=== PATIENT | male | born 1945 | race Hispanic/Latino ===

== ENCOUNTER 2017-10-05 04:02 | Emergency (ER) | payer OTHER ==
[~2017-10-05] VITALS: Ht 188 cm; Wt 119.3 kg
--- NOTE | 2017-10-05 04:30 | ED GI/GU/ABDOMINAL COMPLAINT ---
See Addendum History of Present Illness General Chief Complaint: Abdominal Pain/Flank Pain Stated Complaint: "LOW ABD PAIN, DIZZY" PER PT Source: patient, family Exam Limitations: no limitations Vital Signs & Intake/Output Vital Signs & Intake/Output Vital Signs Date Time Temp Pulse Resp B/P B/P Pulse O2 O2 Flow FiO2 Mean Ox Delivery Rate 10/05 0536 98.3 69 20 119/61 96 Room Air 10/05 0500 99.7 10/05 0500 99 Room Air 10/05 0444 99.7 81 20 121/75 96 Room Air Triage Nurses Notes Reviewed? yes HPI: Patient presents with suprapubic pain that started yesterday afternoon and radiates up into his mid abdomen. The pain is constant. No aggravating or mitigating factors. The pain started during sexual relations with his . He rates the pain as severe. The pain radiates as noted above. The pain is cramping and colicky in nature. There is no diarrhea. There is no dysuria or hematuria. There is no nausea or vomiting. (Sharifa PAL,Keven Jain) Allergies Coded Allergies: No Known Allergies (10/05/17) Reconcile Medications Amlodipine Besylate 2.5 MG TABLET 1 TAB PO DAILY HEART (Reported) Amoxicillin/Potassium Clav (Augmentin 875-125 Tablet) 875 MG-125 MG TABLET 1 TAB PO BID DIVERTICULITIS Carvedilol 6.25 MG TABLET 1 TAB PO BID HEART (Reported) Lisinopril 20 MG TABLET 1 TAB PO DAILY HEART (Reported) (Wanda PAL,Miguel Gongora) Past History Travel History Traveled to [place] past 21 day No Medical History Any Pertinent Medical History? see below for history Cardiovascular: CAD, hypertension Surgical History Surgical History: non-contributory Psychosocial History Tobacco Use: Never used ETOH Use: denies use Illicit Drug Use: denies illicit drug use Family History Hx Contributory? No (Sharifa PAL,Keven Jain) Review of Systems Review of Systems Constitutional: Reports: no symptoms. EENTM: Reports: no symptoms. Respiratory: Reports: no symptoms. Cardiovascular: Reports: no symptoms. GI: Reports: see HPI, abdominal pain. Genitourinary: Reports: see HPI. Musculoskeletal: Reports: no symptoms. Skin: Reports: no symptoms. Neurological/Psychological: Reports: no symptoms. Hematologic/Endocrine: Reports: no symptoms. Immunologic/Allergic: Reports: no symptoms. All Other Systems: Reviewed and Negative (Sharifa PAL,Keven Jain) Physical Exam Physical Exam General Appearance: well developed/nourished, alert, awake, anxious, moderate distress Head: atraumatic, normal appearance Eyes: Bilateral: PERRL, EOMI. Ears, Nose, Throat, Mouth: hearing grossly normal, moist mucous membrane Neck: normal inspection, supple, full range of motion Respiratory: normal breath sounds, chest non-tender, no respiratory distress, lungs clear Cardiovascular: regular rate/rhythm, normal peripheral pulses Gastrointestinal: normal bowel sounds, soft, non-tender, no organomegaly Rectal: prostate warm and tender Male Genitals: right testicle high riding and tender Back: normal inspection, normal range of motion, NO CVA TENDERNESS Extremities: normal range of motion Neurologic/Psych: no motor/sensory deficits, awake, alert, oriented x 3, normal gait, normal mood/affect Skin: intact, normal color, warm/dry Core Measures ACS in differential dx? No Sepsis Present: No Sepsis Focused Exam Completed? No (Sharifa PAL,Keven Jain) Progress Differential Diagnosis: orchitis, pancreatitis, prostatitis, SBO, testicular torsion, ureterolithiasis, urinary retention, urethritis, UTI/pyelo Plan of Care: Orders Procedure Date/time Status PROSTATIC SPECIFIC ANTIGEN 10/06 451 Complete Add-on Test (ER Only) 10/05 0448 Active CULTURE,URINE 10/05 428 Active URINALYSIS 10/05 428 Complete LIPASE 10/05 428 Complete COMPREHENSIVE METABOLIC PANEL 10/05 428 Complete CBC WITHOUT DIFFERENTIAL 10/05 428 Complete AMYLASE 10/05 428 Complete Current Medications Sig/Chandra Start time Last Medication Dose Stop Time Status Admin Sodium Chloride 1,000 ML BOLUS ONE 10/05 0645 AC 10/05 (Normal Saline 0.9%) 10/05 0744 0639 Laboratory Tests 10/05/17 0701: Urine Color YEL, Urine Clarity CLEAR, Urine pH 6.0, Ur Specific [place] <= 1.005 , Urine Protein NEG, Urine Ketones NEG, Urine Nitrite NEG, Urine Bilirubin NEG, Urine Urobilinogen 0.2, Ur Leukocyte Esterase NEG, Ur Microscopic EXAM NOT REQUIRED, Urine Hemoglobin NEG, Urine Glucose NEG 10/05/17 0452: Anion Gap 14, Estimated GFR > 60, BUN/Creatinine Ratio 24.3, Glucose 121 H, Calcium 9.2, Total Bilirubin 0.9, AST 16 L, ALT 23, Alkaline Phosphatase 58, Total Protein 7.5, Albumin 4.3, Globulin 3.2, Albumin/Globulin Ratio 1.3, Amylase 53, Lipase 47, Total PSA 2.98, CBC w Diff NO MAN DIFF REQ, RBC 5.59, MCV 84.4, MCH 27.4, MCHC 32.4 L, RDW 15.1 H, MPV 8.5, Gran % 72.9, Lymphocytes % 17.7 L, Monocytes % 8.5, Eosinophils % 0.8, Basophils % 0.1, Absolute Granulocytes 7.2 H, Absolute Lymphocytes 1.7, Absolute Monocytes 0.8 H, Absolute Eosinophils 0.1, Absolute Basophils 0 Microbiology 10/05 07 URINE ROUT: Urine Culture - RECD Diagnostic Imaging: Viewed by Me: CT Scan, Ultrasound. Discussed w/RAD: CT Scan, Ultrasound. Radiology Impression: PATIENT: JAMES HOWARD PRESENT AGE: 71 PATIENT ACCOUNT NO: [id number] : 46 LOCATION: [facility] ORDERING PHYSICIAN: Keven Skaggs MD SERVICE DATE: 10/05/17 EXAM TYPE: US - US-TESTICULAR EXAMINATION: US SCROTUM CLINICAL INFORMATION: Right testicular pain, high riding COMPARISON: 10/03/2015 TECHNIQUE: A sonogram of the scrotum was performed assessing rivero-scale appearance and color Doppler flow. Spectral analysis and Doppler interrogation was performed. FINDINGS: RIGHT: Right testicle measures 3.8 x 1.3 x 2.5 cm, volume 8.8 mL. Parenchymal echotexture is normal. No focal testicular parenchymal lesions are visualized. Normal symmetric intratesticular flow is visualized. Right epididymal head is normal in size. There is a 1.2 cm epididymal head cyst. There is no hydrocele. A varicocele is noted. LEFT: Left testicle measures 4.4 x 2.2 x 3.1 cm, volume 21.3 mL. Parenchymal echotexture is normal. No focal testicular parenchymal lesions are visualized. Normal symmetric intratesticular flow is visualized. Left epididymal head is normal in size. Small hydrocele with internal debris. No varicocele is seen. IMPRESSION: 1. Small right varicocele. Right epididymal head cyst again noted. 2. No evidence of torsion. Stable asymmetry of the testicular sizes. DICTATED BY: Haresh Swenson MD DATE/TIME DICTATED:10/05/17543 DEVELOPMENTAL TRAINING COUNSELOR:NORA DATE/TIME TRANSCRIBED:10/05/17543 CONFIDENTIAL, DO NOT COPY WITHOUT APPROPRIATE AUTHORIZATION. <Electronically signed in Other Vendor System> SIGNED BY: Haresh Swenson MD 10/05/1749 Initial ED EKG: none Hand-Off Endorsed To: Miguel Muñoz MD Endorsed Time: 0700 Pending: labs Comments: After the IV Tylenol the pain did decrease to the point that he does not want anything else for the pain at this time. Patient states that he still feels lightheaded and is getting some loose any dizziness when he moves his head around. 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 (Wanda PAL,Miguel Gongora) Departure Departure Disposition: STILL A PATIENT Condition: Stable Clinical Impression Primary Impression: Abdominal pain Secondary Impressions: Diverticulitis Referrals: Josiah PAL,Fabrice Diaz (PCP/Family) Departure Forms: Customer Survey General Discharge Information Prescriptions: Current Visit Scripts Amoxicillin/Potassium Clav (Augmentin 875-125 Tablet) 1 TAB PO BID #20 TAB (Sharifa PAL,Keven Jain) Departure Additional Instructions: FOLLOW UP WITH DR. RIBERA IN 48 HOURS CLEAR LIQUIDS ONLY UNTIL PAIN AND NAUSEA FREE TAKE AUGMENTIN PRESCRIBED RETURN IF SYMPTOMS WORSEN OR FOR ANY CONCERNS Please note that there might be incidental findings in your evaluation that are unrelated to the current emergency department visit. Please notify your primary care doctor about this emergency department visit in order to obtain and review all of the testing performed so that these incidental findings can be monitored as needed. If you had an x-ray performed, please understand that some fractures may not be seen on the initial set of x-rays. If your symptoms persist you might need a repeat set of x-rays to check for such a fracture. If you had a laceration evaluated, please understand that foreign bodies such as glass or wood may not be visible to the naked eye or on plain x-rays. If the wound becomes red, swollen, increasingly more painful or if there is any drainage from the wound, please have it reevaluated by a physician for the possibility of a retained foreign body. If you're unable to follow up as outlined in the discharge instructions please return to the emergency department. Thank you for choosing the [facility] for your care. It was a pleasure to serve you today. Miguel Muñoz M.D. [facility] (Wanda PAL,Miguel Gongora)
[2017-10-05 05:06] LABS: ABSOLUTE BASOPHIL COUNT 0 /CUMM (0.0-0.2); ABSOLUTE EOSINOPHIL COUNT 0.1 /CUMM (0.0-0.7); ABSOLUTE GRANULOCYTE CT 7.2 /CUMM (1.4-6.5); ABSOLUTE LYMPH COUNT 1.7 /CUMM (1.2-3.4); ABSOLUTE MONOCYTE COUNT 0.8 /CUMM (0.10-0.60); BASOPHIL % 0.1 % (0.0-2.0); EOSINOPHIL % 0.8 % (0-5); GRANULOCYTE % 72.9 % (42.2-75.2); HEMATOCRIT 47.2 % (42-52); MEAN CORPUSCULAR HGB 27.4 PG (27.0-31.0); MEAN CORPUSCULAR HGB CONC 32.4 G/DL (33.0-37.0); MEAN CORPUSCULAR VOLUME 84.4 FL (80.0-94.0); MEAN PLATELET VOLUME 8.5 FL (7.4-10.4); PLATELET COUNT 210 /CUMM (130-400); RBC DISTRIBUTION WIDTH 15.1 % (11.5-14.5); RED BLOOD CELL CT 5.59 /CUMM (4.70-6.10); WHITE BLOOD CELL COUNT 9.9 /CUMM (4.8-10.8)
--- NOTE | 2017-10-05 05:49 | ULTRASOUND REPORT ---
EXAMINATION: US SCROTUM CLINICAL INFORMATION: Right testicular pain, high riding COMPARISON: 10/03/2015 TECHNIQUE: A sonogram of the scrotum was performed assessing rivero-scale appearance and color Doppler flow. Spectral analysis and Doppler interrogation was performed. FINDINGS: RIGHT: Right testicle measures 3.8 x 1.3 x 2.5 cm, volume 8.8 mL. Parenchymal echotexture is normal. No focal testicular parenchymal lesions are visualized. Normal symmetric intratesticular flow is visualized. Right epididymal head is normal in size. There is a 1.2 cm epididymal head cyst. There is no hydrocele. A varicocele is noted. LEFT: Left testicle measures 4.4 x 2.2 x 3.1 cm, volume 21.3 mL. Parenchymal echotexture is normal. No focal testicular parenchymal lesions are visualized. Normal symmetric intratesticular flow is visualized. Left epididymal head is normal in size. Small hydrocele with internal debris. No varicocele is seen. IMPRESSION: 1. Small right varicocele. Right epididymal head cyst again noted. 2. No evidence of torsion. Stable asymmetry of the testicular sizes.
--- NOTE | 2017-10-05 06:38 | CT SCAN REPORT ---
EXAMINATION: CT ABDOMEN AND PELVIS WITH CONTRAST CLINICAL INFORMATION: Right lower quadrant pain COMPARISON: None TECHNIQUE: Multidetector volumetric imaging was performed of the abdomen and pelvis following IV administration of 95 mL of Optiray 320 intravenous contrast. Sagittal and coronal reformatted images were obtained on the technologist's workstation. DLP: 1071 mGy-cm FINDINGS: LUNG BASES: The visualized lung bases are unremarkable. LIVER, GALLBLADDER, AND BILIARY TREE: The liver is normal in size, shape, and attenuation. No focal hepatic lesion or biliary ductal dilatation is present. Cholecystectomy. PANCREAS: Unremarkable. SPLEEN: Unremarkable. ADRENAL GLANDS: Unremarkable. KIDNEYS AND URETERS: The kidneys are normal in size, shape, and attenuation. No hydronephrosis, hydroureter, or calculi seen. No perinephric stranding. BLADDER: Unremarkable. GASTROINTESTINAL TRACT: There is a lap band in place. Tubing appears intact. The small bowel is normal in caliber. No obstruction. There is colonic diverticulosis. There is focal inflammation in the sigmoid colon adjacent to a diverticulum, consistent with diverticulitis. No free air or fluid collection. The appendix is not visualized. ABDOMINAL WALL: No significant hernia is appreciated. LYMPH NODES: Normal. VASCULAR: Unremarkable. PELVIC VISCERA: The prostate and seminal vesicles are unremarkable. OSSEOUS STRUCTURES: No acute or suspicious osseous abnormality. IMPRESSION: Mild sigmoid diverticulitis. No free air or fluid collection. Nonvisualization of the appendix, but no secondary signs of acute appendicitis.
[2017-10-05] MEDS ORDERED: AUGMENTIN 875-1 EACH PO (06:52)
[2017-10-05] MEDS ORDERED: LISINOPRIL20 M1 PO (07:27)
[2017-10-05] MEDS ORDERED: AMLODIPINE BES2.5 M1 PO (07:27)
[2017-10-05] MEDS ORDERED: CARVEDILOL6.25 M1 PO (07:27)
[2017-10-05] MEDS ORDERED: SCOPOLAMINE1 EAC1 TOP (08:07)
[2017-10-05 09:35] VITALS: BP 118/70
== END 2017-10-05 09:58 ==
LOC: ERH 04:02
PROVIDERS: Emergency Medicine
DX: K57.92 Diverticulitis of intestine, part unspecified, without perforation or abscess without bleeding (principal)
CPT/HCPCS: 74177; 81003; 87086; 96361; 96365; J0131